=== PATIENT | male | born 1965 | race Caucasian/White ===

== ENCOUNTER → 2017-05-03 12:48 | Outpatient (CLI) | payer OTHER, SELFPAY ==
--- NOTE | 2017-05-03 12:52 | CA_ITS ---
PROCEDURE: 2-D M-mode and color Doppler study INDICATIONS FOR THE TEST: Chest pain COPD Heart Murmur Tobacco Smoking Palpitations Fatigue Syncope Edema HypertensionXDiabetes Mellitus Rheumatic Fever SOB ABRAMS Obesity HyperlipidemiaX Family History HDX Additional History LVH PATIENT INFORMATION HEIGHT: 62 WEIGHT:150 GENDER: Male B/P:150/88 2-D/M-MODE INTERPRETATION: 2-D MEASUREMENTS OBSERVED VALUES IN CMS Right Ventricular Dimension (RVDd) 2.0 Interventricular Septum (Thickness)(IVsd) 1.1 Left Ventricular Internal Dimensions(LVIDd) 5.7 Left Ventricular Posterior Wall (Thickness)(LVPWd) .9 Aortic Root 3.3 Aortic Cusp Separation 1.6 Left Atrial Dimensions (LAD) 3.0 2D 1. Left atrium is qualitatively mildly enlarged, left ventricle is normal size, there is mild qualitative concentric left ventricular hypertrophy, visually estimated ejection fraction 55% with no obvious regional wall motion abnormality. 2. The right atrium and right ventricle are normal size and contractility. 3. The aortic valve is minimally thickened and fibrosed. 4. The mitral and tricuspid valve leaflets are minimally thickened 5. No significant pericardial effusion noted 6. The pulmonic valve is poorly visualized. DOPPLER INTERROGATION: Doppler interrogation of the aortic, mitral and tricuspid valvular presence of mild mitral and tricuspid regurgitation, tricuspid and jet velocity is insufficient for calculation of the right ventricular systolic pressure, grade 1 diastolic dysfunction seen without tissue Doppler evidence of raised left atrial pressure. CONCLUSION: 1. Mildly enlarged left atrium, normal left ventricular size, mild qualitative concentric left ventricular hypertrophy, visually estimated ejection fraction 55% with no obvious regional wall motion abnormality, grade 1 diastolic dysfunction seen without tissue Doppler evidence of raised left atrial pressure. 2. Mild mitral and tricuspid regurgitation 3. No significant pericardial effusion noted.
--- NOTE | 2017-05-03 12:53 | XR_ITS ---
XR chest 2V HISTORY: ITS.REASON: abnormal ekg ORDERING PHYSICIAN: Thai Bender MD PATIENT AGE: 52 years COMPARISON: None available FINDINGS: The cardiomediastinal silhouette and pulmonary vascularity are within normal limits. The lungs are clear without infiltrates, suspicious nodules, or pleural effusions. There is increased density along the cardiac apex on the left and may be related to pericardial fat pad There are old bilateral rib fractures. IMPRESSION: No acute finding
[2017-05-03 13:17] LABS: Microscopic, Urine URINE MICROSCOPIC (MICROSCOPIC)
[2017-05-03 13:38] LABS: Basophils % 0.3 % (0.1-2.0); Eosinophils # 0.1 K/mm3 (0.0-0.4); Eosinophils % 1.3 % (0.1-12.0); Hematocrit 45.6 % (42.0-52.0); Hemoglobin 15.1 g/dL (14.1-18.0); Lymphocytes # 2.6 K/mm3 (0.7-4.5); Lymphocytes % 31.4 K/mm3 (10-50); Mean Corpuscular HGB Conc 33.1 g/dL (31.8-35.4); Mean Corpuscular Hemoglobin 29.1 pg (27.0-31.2); Mean Corpuscular Volume 87.8 fl (80-94); Monocytes # 0.5 K/mm3 (0.1-1.0); Platelet Count 271 K/mm3 (142-424); Red Cell Distribution Width 13.7 % (11.5-17.5); White Blood Count 8.1 K/mm3 (4.8-10.8)
[2017-05-03 15:17] LABS: Appearance,Urine CLEAR (Clear); Bilirubin,Urine Negative (Negative); Blood, Urine Negative (Negative); Color,Urine YELLOW (Yellow); Glucose,Urine (UA) Negative (Negative); Ketones,Urine Negative (Negative); Leukocyte Esterase,Urine Negative (Negative); Nitrate,Urine Negative (Negative); Protein,Urine Negative (Negative); Urobilinogen,Urine 0.2 EU/dl (0.2)
[2017-05-03 15:49] LABS: Bacteria,Urine Trace /lpf; Squamous Epithelial Cell,Urine Occasional #/hpf (0-5)
[2017-05-03 16:02] LABS: Erythrocyte Sedimentation Rate 14 mm/hr (0-20)
[2017-05-03 16:13] LABS: Alanine Aminotransferase 19 U/L (12-78); Albumin Level 4.1 gm/dL (3.4-5.0); Alkaline Phosphatase 54 U/L (46-116); Amylase 56 U/L (25-125); Aspartate Amino Transferase 15 U/L (15-37); Bilirubin,Direct 0.1 mg/dL (0.0-0.2); Bilirubin,Total 0.4 mg/dL (0.2-1.0); Blood Urea Nitrogen 14 mg/dL (7-18); Carbon Dioxide 30 mmol/L (21.0-32.0); Chloride 104 mmol/L (98-107); Creatinine,Serum 1.01 mg/dL (0.70-1.30); Estimated Glomerular Filt Rate 77 ml/min (>60); GFR (African American) 93 ML/MIN (>60); Glucose 89 mg/dL (74-106); Lipase 189 u/L (73-393); Sodium 144 mmol/L (136-145); Total Protein,Serum 7.6 gm/dL (6.4-8.2)
[2017-05-03 16:25] LABS: C-Reactive Protein < 0.2 mg/L (0.0-0.9)
[2017-05-04 19:10] LABS: PSA, Free 0.13 ng/mL; Prostate Specific Ag 0.4 ng/mL (0.0-4.0)
[2017-07-26 20:01] LABS: Albumin 3.6; Alpha-1-Globulin 0.2; Alpha-2-Globulin 0.7; Protein, Total 6.9
[2017-07-26 20:03] LABS: Albumin, U 22.3; Alpha-1-Globulin, U 5.3; Alpha-2-Globulin, U 20.9; Gamma Globulin, U 25.6; M-Spike, % NOT OBSERVED; Protein,Total,Urine 5.3
== END ==
PROVIDERS: Visit Provider Internal Medicine
DX: Z82.49 Family history of ischemic heart disease and other diseases of the circulatory system (principal); R21 Rash and other nonspecific skin eruption; I51.7 Cardiomegaly; D49.0 Neoplasm of unspecified behavior of digestive system; E78.4 Other hyperlipidemia; I10 Essential (primary) hypertension; R94.31 Abnormal electrocardiogram [ECG] [EKG]
CPT/HCPCS: 36415; 71046; 80048; 80076; 81001; 82150; 83690; 84153; 84154; 84165; 84166; 85025; 85651; 86140; 93306